=== PATIENT | female | born 2000 | race Caucasian/White ===

== ENCOUNTER 2021-10-18 09:00 | Emergency (ER) | payer OTHER ==
[~2021-10-18] VITALS: Ht 149.9 cm; Wt 49.0 kg
[2021-10-18 09:19] VITALS: BP 144/120
--- NOTE | 2021-10-18 09:25 | NUR ---
Patient ambulated to bed 5.
--- NOTE | 2021-10-18 10:05 | NUR ---
21 y/o female bib self with c/o abdominal pain x yeterday. Per patient she drank a large amount of alcohol yesterday and blacked out. Patient is unsure how much she drank. +nausea, +vomiting. Patient denies any fever, chills, SOB or being around anyone who is sick. Per patient her vomiting has blood in it. Medical History: Denies NKDA
--- NOTE | 2021-10-18 10:08 | NUR ---
Dr. Salcedo evaluating patient at bedside.
[2021-10-18] MEDS ORDERED: FAMOTIDINE 20 MG/2 ML VIAL IVP ONE (10:15)
[2021-10-18] MEDS ORDERED: NACL 0.9% 1,000 ML IV SCH (10:15)
[2021-10-18] MEDS ORDERED: ONDANSETRON 4 MG/2 ML VIAL IVP ONE (10:15)
[2021-10-18 10:29] LABS: BASOPHILS % (AUTO) 0.3 % (0.0-2.0); EOSINOPHILS % (AUTO) 0.1 % (0.0-4.0); HEMATOCRIT 44.7 % (36-48); HEMOGLOBIN 15.1 g/dL (12.0-16.0); LYMPHOCYTES # (AUTO) 1.4 K/uL (2.5-16.5); LYMPHOCYTES % (AUTO) 15.4 % (20.5-51.1); MEAN CORPUSCULAR HEMOGLOBIN 30 pg (27-31); MEAN CORPUSCULAR HGB CONC 34 g/dL (33-37); MEAN CORPUSCULAR VOLUME 88.7 fL (80-94); MONOCYTES # (AUTO) 0.4 K/uL (0.8-1.0); MONOCYTES % (AUTO) 4.8 % (1.7-9.3); NEUTROPHILS # (AUTO) 7.1 K/uL (1.8-7.7); NEUTROPHILS % (AUTO) 79.4 % (42.2-75.2); PLATELET COUNT (AUTO) 269 K/uL (140-450); RED BLOOD CELL COUNT(AUTO) 5.05 MIL/uL (4.20-5.40); RED CELL DISTRIBUTION WIDTH 12.9 % (11.6-13.7)
[2021-10-18 11:03] LABS: ALBUMIN 5.2 g/dL (3.4-5.0); ANION GAP 20.5 (8-16); CREATININE 0.8 mg/dL (0.6-1.3); POTASSIUM 4.5 mmol/L (3.5-5.1); TOTAL BILIRUBIN 0.9 mg/dL (0.0-1.0)
--- NOTE | 2021-10-18 11:30 | NUR ---
Patient was able to provide urine. HCG -
[2021-10-18] MEDS ORDERED: FAMO-92 PO (12:09)
[2021-10-18] MEDS ORDERED: ONDA-188 PO (12:09)
[2021-10-18 12:18] VITALS: BP 107/70
--- NOTE | 2021-10-18 12:20 | NUR ---
Patient discharged with v/s stable. Written and verbal after care instructions given and explained. Patient alert, oriented and verbalized understanding of instructions. Ambulatory with steady gait. All questions addressed prior to discharge. ID band removed. Patient advised to follow up with PMD. Rx of pepcid & zofran given. Patient educated on indication of medication including possible reaction and side effects. Opportunity to ask questions provided and answered.
== END 2021-10-18 12:20 | disposition home or self-care (01) ==
LOC: MED 09:00
DX: K29.20 Alcoholic gastritis without bleeding (principal); F41.9 Anxiety disorder, unspecified; D64.9 Anemia, unspecified; F17.200 Nicotine dependence, unspecified, uncomplicated; Z72.89 Other problems related to lifestyle
CPT/HCPCS: 36415; 80053; 81025; 83690; 85025; 96361; 96374; 96375; 99284; J2405; J3490; J7030

== ENCOUNTER 2022-04-30 06:45 | Emergency (ER) | payer OTHER ==
[~2022-04-30] VITALS: Ht 149.9 cm; Wt 48.5 kg
[~2022-04-30 06:45] MED LIST: FAMO-92 PO; ONDA-188 PO
[2022-04-30 06:48] VITALS: BP 116/85
--- NOTE | 2022-04-30 06:52 | NUR ---
TO LOBBY FOLLOWING TRIAGE
--- NOTE | 2022-04-30 06:57 | NUR ---
Patient being evaluated by physician
[2022-04-30] MEDS ORDERED: AMOX1TAB8 PO (07:09)
[2022-04-30] MEDS ORDERED: BENZ-300 PO (07:09)
[2022-04-30] MEDS ORDERED: IBUP-1842 PO (07:09)
[2022-04-30] MEDS ORDERED: IBUPROFEN 400 MG TAB PO ONE (07:10)
--- NOTE | 2022-04-30 07:50 | NUR ---
STREP, COVID SWABED DONE.
[2022-04-30 08:05] VITALS: BP 118/79
--- NOTE | 2022-04-30 08:05 | NUR ---
Patient discharged with v/s stable. Written and verbal after care instructions given and explained. Patient alert, oriented and verbalized understanding of instructions. Ambulatory with steady gait. All questions addressed prior to discharge. ID band removed. Patient advised to follow up with PMD. Rx of AMOXICILLIN, CEPACOL, IBUPROFEN given. Patient educated on indication of medication including possible reaction and side effects. Opportunity to ask questions provided and answered.
== END 2022-04-30 08:05 | disposition home or self-care (01) ==
LOC: MED 06:45
DX: J02.9 Acute pharyngitis, unspecified (principal); Z20.822 Contact with and (suspected) exposure to COVID-19
CPT/HCPCS: 87081; 99283